=== PATIENT | female | born 1940 | race Caucasian/White ===

== ENCOUNTER 2018-02-20 19:57 | Emergency (ER) | payer MEDICARE, OTHER ==
[2018-02-20] MEDS: AUGMENTIN 875 MG TAB PO ×2 (21:45)
== END 2018-02-20 22:34 | disposition home or self-care (01) ==
LOC: M ED 19:57
DX: T85.79XA Infection and inflammatory reaction due to other internal prosthetic devices, implants and grafts, initial encounter (principal); K04.7 Periapical abscess without sinus (principal); I48.91 Unspecified atrial fibrillation; Y92.9 Unspecified place or not applicable; Y93.9 Activity, unspecified; Z86.73 Personal history of transient ischemic attack (TIA), and cerebral infarction without residual deficits; Z79.82 Long term (current) use of aspirin; Z96.5 Presence of tooth-root and mandibular implants; Z79.899 Other long term (current) drug therapy
CPT/HCPCS: 99283